=== PATIENT | male | born 1995 | race Caucasian/White ===

== ENCOUNTER 2017-08-16 19:40 | Emergency (ER) | payer BC ==
[2017-08-16] MEDS ORDERED: AMOX TR/POT CLAV 500MG/125MG TABLETS (FP) PO ONE (20:03)
--- NOTE | 2017-08-16 20:03 | PDOC ---
History of Present Illness - History of Present Illness Initial Comments: 08/16/17 20:15 22 year old male, with no significant past medical history, who presents to the emergency room with a dog bite on his right calf and right hand that occurred at approximately 6:45pm tonight. The patient explains that he was walking his dog when the neighbors dog got loose and bit him in the back of the calf. The wound is no longer actively bleeding, but has become increasingly swollen since the injury. While trying to push the dog away, the patient also got bit in the hand. The patient states that he is up to date on immunizations. He is unsure about the health status of the dog. Denies fever, chills, nausea, vomiting. Denies dizziness, headache. Denies any other injuries. PAST MEDICAL HISTORY: no significant history PAST SURGICAL HISTORY: no significant history FAMILY HISTORY: no pertinent history SOCIAL HISTORY: Pt lives with family and is employed. MEDICATIONS: reviewed ALLERGIES: As per nursing notes PCP: Dr. Harrison Review of systems General: No fevers or chills, no weakness, no weight loss HEENT: No change in vision. No sore throat, No ear pain CardioVascular: No chest pain or shortness of breath Respiratory:No cough, or wheezing. Gastrointestinal: no nausea, vomiting, diarrhea or constipation, No rectal bleeding Genitourinary: No dysuria, hematuria, or frequency Musculoskeletal: No joint or muscle pain. Neurologic: No headache, vertigo, dizziness or loss of consciousness Psychiatric: nor depression Skin: +dog bite on the right calf and right hand. No rashes or easy bruising Endocrine: no increased thirst or abnormal weight change Allergic: no skin or latex allergy All other systems reviewed and normal Physical Exam GENERAL: The patient is awake, alert, and fully oriented, in no acute distress. HEAD: Normal with no signs of trauma. EYES: Pupils equal, round and reactive to light, extraocular movements intact, sclera anicteric, conjunctiva clear. RIGHT HAND:There are two superficial puncture wounds with one on the dorsum and one on the palmar surface, over the area of right thumb. No associated bony tenderness. No bleeding. No associated visible contusion. RIGHT CALF: There are two puncture wounds to the right calf with associated soft tissue contusion. No active bleeding, but both puncture wounds have dried blood. NEUROLOGICAL: Normal speech, normal gait. PSYCH: Normal mood, normal affect. SKIN: Warm, Dry, normal turgor. <Yuli Lin - Last Filed: 08/16/17 20:15> - General History Source: Patient Exam Limitations: No Limitations - History of Present Illness Initial Comments: 08/16/17 20:47 A portion of this note was documented by scribe services under my direction. I have reviewed the details of the note, within reason, and agree with the documentation. The case summary and management plan written by me. X-ray lower extremity no foreign body Assessment and plan: This is a 22-year-old male who comes in status post dog bite to the right calf and a superficial bite to the right hand. Puncture wounds were cleaned and bacitracin and dressing was applied. Patient was given a dose of IV Augmentin here in the emergency room. Patient filled out the dog bite paperwork and was told that the health Department would contact him if there was anything he needed to be concerned about. Patient discharged home. <Efe Chong I - Last Filed: 08/16/17 20:47> - General Chief Complaint: Bite Stated Complaint: DOG BITE RIGHT HAND & CALF Time Seen by Provider: 08/16/17 19:54 Past History <Yuli Lin - Last Filed: 08/16/17 20:15> - Immunization History Td Vaccination: Yes Immunization Up to Date: Yes - Suicide/Smoking/Psychosocial Hx Smoking Status: No Smoking History: Never smoked Number of Cigarettes Smoked Daily: 0 <Efe Chong I - Last Filed: 08/16/17 20:47> - Past Medical History Allergies/Adverse Reactions: Allergies Allergy/AdvReac Type Severity Reaction Status Date / Time No Known Allergies Allergy Verified 08/16/17 20:09 Home Medications: Ambulatory Orders Amox-Tr/K Cl [Augmentin - 500Mg Tablet] 1 tab PO BID #14 tab 08/16/17 Sertraline HCl [Zoloft -] 75 mg PO DAILY 08/16/17 *Physical Exam - Vital Signs Last Vital Signs Temp Pulse Resp BP Pulse Ox 98.9 F 90 16 120/74 97 08/16/17 19:41 08/16/17 19:41 08/16/17 19:41 08/16/17 19:41 08/16/17 19:41 <Yuli Lin - Last Filed: 08/16/17 20:15> ED Treatment Course - Medications Given in the ED: ED Medications Discontinued Medications Generic Name Dose Route Start Last Admin Trade Name Antoinette PRN Reason Stop Dose Admin Amoxicillin/Clavulanate Potassium 1 tab 08/16/17 20:03 08/16/17 20:07 Augmentin - 500mg Tablet PO 08/16/17 20:04 1 tab ONCE ONE Administration <Yuli Lin - Last Filed: 08/16/17 20:15> *DC/Admit/Observation/Transfer - Attestations Scribe Attestion: 08/16/17 20:16 Documentation prepared by TERRY Thomas, acting as medical sociologist for Efe Chong MD. <Yuli Lin - Last Filed: 08/16/17 20:15> <Efe Chong I - Last Filed: 08/16/17 20:47> Diagnosis at time of Disposition: Dog bite of lower leg Qualifiers: Encounter type: initial encounter Laterality: right Qualified Code(s): S81.851A - Open bite, right lower leg, initial encounter Dog bite of hand without complication Qualifiers: Encounter type: initial encounter Laterality: right Qualified Code(s): S61.451A - Open bite of right hand, initial encounter - Discharge Dispostion Condition at time of disposition: Good - Prescriptions Prescriptions: Amox-Tr/K Cl [Augmentin - 500Mg Tablet] 1 tab PO BID #14 tab - Referrals Referrals: Yonas Harrison [Primary Care Provider] - - Patient Instructions Printed Discharge Instructions: How to Care for a Domestic Animal Bite Additional Instructions: Tylenol or Motrin as needed for pain To prevent infection take Augmentin one tablet twice a day for 7 days. Return to the emergency department immediately with ANY new, persistent or worsening symptoms. Continue any medications as previously prescribed by your physician. You should follow up with your primary doctor as soon as possible regarding today's emergency department visit. . Please make sure your doctor reviews the results of your emergency evaluation. Thank you for coming to the Emergency Department today for your care. It was a pleasure to see you today. Please note that your evaluation is INCOMPLETE until you follow-up with your doctor. - Post Discharge Activity
[2017-08-16] MEDS ORDERED: AMOX TR/POT CLAV 500MG/125MG TABLETS (FP) ONE (20:05)
[2017-08-16 20:17] VITALS: BP 120/74; PULSE 90; TEMP 98.9; BMI 22.3
== END 2017-08-16 20:52 | disposition home or self-care (01) ==
LOC: FER 19:40
DX: S61.451A Open bite of right hand, initial encounter (principal); S81.851A Open bite, right lower leg, initial encounter; W54.0XXA Bitten by dog, initial encounter; Y93.89 Activity, other specified; Y92.410 Unspecified street and highway as the place of occurrence of the external cause
CPT/HCPCS: 73590-TC-RT; 99282-25